=== PATIENT | female | born 1945 | race Caucasian/White ===

== ENCOUNTER → 2016-07-27 | Outpatient (CLI) | payer OTHER ==
[~2016-07-27] MED LIST: AMLODIPINE BESYL5 MG PO; AZITHROMYCIN250 MG PO; AZITHROMYCIN250 MG1 PO; BENADRYL25 MG PO; ESTRADIOL1 MG PO; EXTRA STRENGTH500 M1 PO; LISINOPRIL20 MG PO; MAGNESIUM250 MG PO; METOPROLOL TART25 MG PO; NAPROXEN500 MG PO; NEXIUM40 MG PO; PREDNISONE10 MG PO; PREDNISONE20 MG PO; PREMARIN0.625 MG PO; PROVENTIL HFA6.7 GM IH; SIMVASTATIN10 MG PO; VENTOLIN HFA18 GM IH
== END | disposition home or self-care (01) ==
LOC: CDC 11:40
DX: R00.1 Bradycardia, unspecified (principal)
CPT/HCPCS: 93000